=== PATIENT | male | born 1985 | race Caucasian/White ===

== ENCOUNTER → 2019-02-13 | Outpatient (CLI) | payer OTHER ==
[~2019-02-13] MED LIST: E-Z-GAS II EFFERVESCENT PACKET (SODIUM BICARB./CITRIC ACID/SIMETHICONE) As Ordered ONE; E-Z-HD 98% w/w 340GM SUSP BTL As Ordered ONE; E-Z-PAQUE 96% w/w SUSP 176GM BTL As Ordered ONE
--- NOTE | 2019-02-13 16:42 | REP ---
Esophagram The procedure was performed under the direct supervision of Dr. Liang. The images were reviewed with Dr. Liang. 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 The superior mediastinal structures are midline. The heart size is within normal limits. The lungs are clear. Liquid barium and gas producing granules were given in the erect position as well as liquid barium in the prone oblique positions in order to perform a double contrast esophagram examination. The oral and pharyngeal stages of deglutition are unremarkable. Esophageal transport is prompt and efficient and there is no esophagitis, stricture, mucosal ring or hiatal hernia. Gastroesophageal reflux is not demonstrated on this examination. Impression: Essentially unremarkable double contrast esophagram examination. 0.4 minutes of fluoro time was utilized for this procedure. Reviewed by SABINA Cha 02/13/2019 03:54 P Electronically Signed by Loy Liang MD 02/13/2019 04:34 P
== END ==
LOC: M RAD 09:41
PROVIDERS: ATTEND Emergency Medicine
DX: R13.10 Dysphagia, unspecified (principal)

== ENCOUNTER 2020-03-31 11:37 | Emergency (ER) | payer OTHER ==
[~2020-03-31] VITALS: Ht 185.4 cm; Wt 83.0 kg
[2020-03-31] MEDS ORDERED: theraflu (11:46)
[2020-03-31] MEDS ORDERED: LISI10TA4 PO (12:47)
[2020-03-31 12:53] VITALS: BP 154/83
[2020-04-01 15:07] LABS: Lyme Disease IgG/IgM Antibodie <0.91 ISR (0.00-0.90); Lyme Disease IgM Ab Quantitati <0.80 index (0.00-0.79)
== END 2020-03-31 12:55 | disposition home or self-care (01) ==
LOC: M ED 11:37
DX: J02.9 Acute pharyngitis, unspecified (principal); R05 Cough; M79.10 Myalgia, unspecified site; R50.9 Fever, unspecified; F17.220 Nicotine dependence, chewing tobacco, uncomplicated